=== PATIENT | female | born 1995 | race Caucasian/White ===

== ENCOUNTER 2016-06-26 13:46 | Emergency (ER) | payer BC ==
[~2016-06-26] VITALS: Ht 162.6 cm; Wt 43.6 kg
[~2016-06-26 13:46] MED LIST: ESCI10TA17 PO
[2016-06-26 13:50] VITALS: BP 130/86; TEMP 36.6; Ht 162.6 cm; Wt 43.6 kg
[2016-06-26] MEDS ORDERED: IBUPROFEN 600 MG TAB PO STA (14:01)
[2016-06-26] MEDS ORDERED: CITA20TA9 PO (14:04)
--- NOTE | 2016-06-26 14:29 | DIAGNOSTIC IMAGING REPORT ---
RIGHT WRIST MIN 3 VIEWS ROUTINE CLINICAL HISTORY: Right wrist pain following injury. COMPARISON: None FINDINGS: Alignment of the right wrist is anatomic. There is no acute fracture. IMPRESSION: No acute fracture or dislocation of the right wrist. Electronically signed by: Jake Lomas M.D. 06/26/2016 2:27 PM Dictated Date/Time: 06/26/2016 2:27 PM
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
[2016-06-26 15:21] VITALS: PULSE 89; O2SAT 95
== END 2016-06-26 15:00 | disposition home or self-care (01) ==
LOC: C.EDB 13:49 → C.EDD 15:00
DX: S63.501A Unspecified sprain of right wrist, initial encounter (principal); Y09 Assault by unspecified means; F31.9 Bipolar disorder, unspecified; F17.200 Nicotine dependence, unspecified, uncomplicated; Z87.440 Personal history of urinary (tract) infections; Z79.899 Other long term (current) drug therapy; Z83.79 Family history of other diseases of the digestive system

== ENCOUNTER 2017-01-10 14:23 | Emergency (ER) | payer BC ==
[~2017-01-10] VITALS: Ht 162.6 cm; Wt 44.5 kg
[~2017-01-10 14:23] MED LIST changes: +CITA20TA9 PO; -ESCI10TA17 PO
[2017-01-10 14:34] VITALS: TEMP 37.3; Ht 162.6 cm; Wt 44.5 kg
--- NOTE | 2017-01-10 14:53 | EMERGENCY ROOM VISIT NOTE ---
History First contact with patient: 14:37 Chief Complaint: CARDIAC ASSESSMENT Stated Complaint: CHEST PAIN,PAINFUL BREATHING Nursing Triage Summary: triage note: pt reports she is 6 weeks preg. pt reports for the past 3 days she has had chest pain and pain with breathing. pt seen at [facility] and sent to ed for further eval. History of Present Illness The patient is a 21 year old female who presents to the Emergency Room with complaints of bilateral chest pain that is worse with inspiration and that has been intermittent over the last 3 days. The patient also has some associated difficulty breathing. She denies any infectious symptoms such as productive cough or fever. The patient reports that she is 6 weeks . She is . She does admit to smoking up until 2 weeks ago. She quit when she found out that she was . She denies any vaginal bleeding or lower abdominal cramping. She denies any leg pain, recent long travel or history of blood clots. He does intermittently feel dizzy, however this is been going on for several weeks. She denies heart palpitations. Review of Systems 10 system review performed and negative unless noted in HPI or below Past Medical/Surgical History Medical Problems: (1) Bipolar disorder (2) Dehydration (3) Deliver-Single Liveborn (4) Nausea vomiting and diarrhea (5) Oth Curr Cond-Antepartum (6) premature rupture of membranes (7) Single (8) Supervis Oth Normal Preg (9) Urinary tract infection Surgical Problems: (1) H/O dilation and curettage Family History Ulcerative colitis Social History Smoking Status: Former Smoker Alcohol Use: occasionally Drug Use: none Marital Status: single Housing Status: lives with family Occupation Status: employed Current/Historical Medications Scheduled Citalopram Hydrobromide (Celexa), 20 MG PO QAM Hydroxyzine Pamoate (Vistaril), 25 MG PO HS Multivit/Min/Iron/Fol Ac/Pren ( Vitamin), 2 TAB PO DAILY Physical Exam Vital Signs Date Time Temp Pulse Resp B/P (MAP) Pulse Ox O2 Delivery O2 Flow Rate FiO2 01/10/17 17:15 96 16 109/61 100 01/10/17 16:18 80 16 108/50 99 01/10/17 14:34 37.3 118 20 103/68 99 Room Air Physical Exam VITALS: Vitals are noted on the nurse's note and reviewed by myself. Vital signs stable. GENERAL: 21-year-old female, in no acute distress, nondiaphoretic, well- developed well-nourished. SKIN: The skin was without rashes, erythema, edema, or bruising. HEAD: Normocephalic atraumatic. EARS: External auditory canals clear, tympanic membranes pearly flores without erythema or effusion bilaterally. EYES: Conjunctivae without injection, sclerae without icterus. Extraocular movements intact. MOUTH: Mucous membranes moist. Tonsils are not enlarged. Pharynx without erythema or exudate. Uvula midline. Airway patent. Tongue does not deviate. NECK: Supple without nuchal rigidity. No lymphadenopathy. Cervical spine is nontender. No JVD. HEART: Tachycardic, regular rhythm without murmurs gallops or rubs. LUNGS: Clear to auscultation bilaterally without wheezes, rales or rhonchi. No accessory muscle use. No tenderness over the thorax. ABDOMEN: Positive bowel sounds x 4.Soft, nontender, without organomegaly. No guarding or rebound tenderness. MUSCULOSKELETAL: No muscle atrophy, erythema, or edema noted. Strength 5/5 throughout. NEURO: Patient was alert and oriented to person place and time. Normal sensation to touch. No focal neurological deficits. Medical Decision & Procedures ER Provider Diagnostic Interpretation: Chest x-ray IMPRESSION: 1. Minor blunting of the right lateral costophrenic angle 2. No evidence of focal pulmonary consolidation Electronically signed by: Dario Ochoa M.D. 01/10/2017 3:08 PM Dictated Date/Time: 01/10/2017 3:07 PM The status of this report is Signed. Draft = Not yet reviewed or approved by Radiologist. Signed = Reviewed and approved by Radiologist. Laboratory Results 01/10/17 15:06 Red Blood Count 4.25, Mean Corpuscular Volume 88.9, Mean Corpuscular Hemoglobin 31.5, Mean Corpuscular Hemoglobin Concent 35.4, Mean Platelet Volume 8.2, Neutrophils (%) (Auto) 72.0, Lymphocytes (%) (Auto) 13.5, Monocytes (%) (Auto) 12.5, Eosinophils (%) (Auto) 1.4, Basophils (%) (Auto) 0.2, Neutrophils # (Auto ) 7.61, Lymphocytes # (Auto) 1.43, Monocytes # (Auto) 1.32, Eosinophils # (Auto ) 0.15, Basophils # (Auto) 0.02 01/10/17 15:06 Test 01/10/17 15:06 White Blood Count 10.57 K/uL (4.8-10.8) Red Blood Count 4.25 M/uL (4.2-5.4) Hemoglobin 13.4 g/dL (12.0-16.0) Hematocrit 37.8 % (37-47) Mean Corpuscular Volume 88.9 fL (80-100) Mean Corpuscular Hemoglobin 31.5 pg (25-34) Mean Corpuscular Hemoglobin Concent 35.4 g/dl (32-36) Platelet Count 307 K/uL (130-400) Mean Platelet Volume 8.2 fL (7.4-10.4) Neutrophils (%) (Auto) 72.0 % Lymphocytes (%) (Auto) 13.5 % Monocytes (%) (Auto) 12.5 % Eosinophils (%) (Auto) 1.4 % Basophils (%) (Auto) 0.2 % Neutrophils # (Auto) 7.61 K/uL (1.4-6.5) Lymphocytes # (Auto) 1.43 K/uL (1.2-3.4) Monocytes # (Auto) 1.32 K/uL (0.11-0.59) Eosinophils # (Auto) 0.15 K/uL (0-0.5) Basophils # (Auto) 0.02 K/uL (0-0.2) RDW Standard Deviation 40.1 fL (36.4-46.3) RDW Coefficient of Variation 12.5 % (11.5-14.5) Immature Granulocyte % (Auto) 0.4 % Immature Granulocyte # (Auto) 0.04 K/uL (0.00-0.02) D-Dimer 200 ug/L FEU (0-500) Anion Gap 7.0 mmol/L (3-11) Est Creatinine Clear Calc Drug Dose 99.1 ml/min Estimated GFR () 147.3 Estimated GFR (Non- 127.1 BUN/Creatinine Ratio 18.4 (10-20) Calcium Level 8.4 mg/dl (8.5-10.1) Total Bilirubin 0.9 mg/dl (0.2-1) Aspartate Amino Transf (AST/SGOT) 9 U/L (15-37) Alanine Aminotransferase (ALT/SGPT) 15 U/L (12-78) Alkaline Phosphatase 61 U/L (45-117) Troponin I < 0.015 ng/ml (0-0.045) Total Protein 7.4 gm/dl (6.4-8.2) Albumin 3.8 gm/dl (3.4-5.0) Globulin 3.6 gm/dl (2.5-4.0) Albumin/Globulin Ratio 1.1 (0.9-2) Human Chorionic Gonadotropin, Quant 68744 mIU/mL ECG Indication: chest pain Rate (beats per minute): 85 Rhythm: normal sinus Comparison ECG Date: no prior available ED Course Patient was seen and examined Vital signs including blood pressure were reviewed medications list was verified with patient Labs were obtained, and a saline lock was established An EKG was performed. She was put on a monitor. Upon reevaluation, the patient was resting comfortably. We discussed the results of her workup. She voiced understanding, and was comfortable being discharged home. The case was also discussed with my supervising physician I reviewed discharge instructions the patient. They voiced understanding and had no further questions. Medical Decision Differential diagnosis: Pulmonary embolus, musculoskeletal pain, costochondritis Acute myocardial infarction, cardiac arrhythmia, anemia, thyroid abnormality, pneumothorax, pneumonia, bronchitis, pericarditis, electrolyte imbalance This patient is a 21-year-old female that presents to the emergency department with complaints of pleuritic chest pain. Also some slight shortness of breath. This however seem to be associated more with pain during deep breathing. She is also 6 weeks . Upon initial evaluation, the patient was tachycardic. She does have a history of smoking, however she does say that she quit smoking a few weeks back. A cardiac workup was performed. Her EKG shows normal sinus rhythm with no signs of ischemia or infarction. No signs of a cardiac arrhythmia on the monitor. Her troponin is negative. Other labs were within normal limits. A d-dimer was also performed and within normal limits. Had a low suspicion at that point of pulmonary embolus. This is likely musculoskeletal pain. The patient was advised that she should take Tylenol only for pain, not ibuprofen. She was also advised that she should follow-up with her primary care physician in addition to her mechanic chief within 48 hours. She agrees to return to the emergency department with any new or worsening symptoms This chart was completed in part utilizing [employer] Speech Voice Recognition software. Attempts were made to minimize the grammatical errors, random word insertions, pronoun errors and incomplete sentences. Any formal questions or concerns about the content, text or information contained within the body of this dictation should be directly addressed to the provider for clarification. Impression Primary Impression: Chest pain Departure Information Dispostion Home / Self-Care Condition GOOD Referrals No Doctor, Assigned (PCP) Patient Instructions My [facility] Additional Instructions You were evaluated in the emergency department for chest pain. This is possibly due to musculoskeletal pain. You may have Tylenol 500 mg every 6 hours as needed for pain. Please follow up closely with your primary care physician. Call on Thursday for a follow-up appointment. Please also notify your hand candy cutter that you were in the emergency department. Please return to the emergency department with any new or worsening symptoms such as worsening pain, difficulty breathing, vaginal bleeding or severe abdominal cramping.
--- NOTE | 2017-01-10 15:09 | DIAGNOSTIC IMAGING REPORT ---
CHEST ONE VIEW PORTABLE CLINICAL HISTORY: Atypical chest pain shortness of breath. . COMPARISON STUDY: 07/05/2015 FINDINGS: The cardiac and mediastinal contours are normal. There is no evidence of focal pulmonary consolidation. There is no evidence of failure. There is minor blunting of the right lateral costophrenic angle..[ A rounded opacity at the right lung base likely representing nipple shadow. There is a mild thoracic levoscoliosis. IMPRESSION: 1. Minor blunting of the right lateral costophrenic angle 2. No evidence of focal pulmonary consolidation Electronically signed by: Dario Ochoa M.D. 01/10/2017 3:08 PM Dictated Date/Time: 01/10/2017 3:07 PM
[2017-01-10 15:16] LABS: BASO % 0.2 %; BASO ABS # 0.02 K/uL (0-0.2); COMPLETE YES; EOS % 1.4 %; HEMATOCRIT 37.8 % (37-47); IG% 0.4 %; LYMPH % 13.5 %; LYMPH ABS # 1.43 K/uL (1.2-3.4); MEAN CELL VOLUME 88.9 fL (80-100); MEAN CORPUSCULAR HEMOGLOBIN 31.5 pg (25-34); MEAN CORPUSCULAR HGB CONC 35.4 g/dl (32-36); MEAN PLATELET VOLUME 8.2 fL (7.4-10.4); MONO % 12.5 %; PLATELET COUNT 307 K/uL (130-400); RED BLOOD COUNT 4.25 M/uL (4.2-5.4); WHITE BLOOD COUNT 10.57 K/uL (4.8-10.8)
[2017-01-10 15:33] LABS: ALT/SGPT 15 U/L (12-78); AST/SGOT 9 U/L (15-37); BLOOD UREA NITROGEN 11 mg/dl (7-18); BUN/CREATININE RATIO 18.4 (10-20); CALCIUM 8.4 mg/dl (8.5-10.1); CARBON DIOXIDE 28 mmol/L (21-32); CHLORIDE 102 mmol/L (98-107); CREATININE 0.62 mg/dl (0.60-1.20); GLUCOSE 132 mg/dl (70-99); POTASSIUM 3.5 mmol/L (3.5-5.1); SODIUM 137 mmol/L (136-145)
[2017-01-10] MEDS ORDERED: HYDR25CA PO (15:36)
[2017-01-10] MEDS ORDERED: PRENTAB26 PO (15:37)
[2017-01-10 15:38] LABS: ALB/GLOB RATIO 1.1 (0.9-2); ALKALINE PHOSPHATASE 61 U/L (45-117)
[2017-01-10 17:15] VITALS: BP 109/61; PULSE 96; O2SAT 100
== END 2017-01-10 17:16 | disposition home or self-care (01) ==
LOC: C.EDB 14:25 → C.EDA 17:16
DX: O26.891 Other specified pregnancy related conditions, first trimester (principal); R07.9 Chest pain, unspecified; Z3A.01 Less than 8 weeks gestation of pregnancy; O99.341 Other mental disorders complicating pregnancy, first trimester; F31.9 Bipolar disorder, unspecified; Z87.440 Personal history of urinary (tract) infections; Z87.891 Personal history of nicotine dependence; Z83.79 Family history of other diseases of the digestive system; Z79.899 Other long term (current) drug therapy

== ENCOUNTER 2017-02-13 14:30 | Emergency (ER) | payer BC ==
[~2017-02-13] VITALS: Ht 162.6 cm; Wt 46.7 kg
[~2017-02-13 14:30] MED LIST changes: +HYDR25CA PO
[2017-02-13 14:34] VITALS: TEMP 37; Ht 162.6 cm; Wt 46.7 kg
--- NOTE | 2017-02-13 15:01 | DIAGNOSTIC IMAGING REPORT ---
R HAND MIN 3 VIEWS ROUTINE HISTORY: 21 years-old Female R ring finger pain acute right fourth finger pain COMPARISON: Right wrist radiographs 06/26/2016 TECHNIQUE: 3 views of the right hand FINDINGS: There is an acute appearing intra-articular avulsion fracture involving the dorsal base of the fourth distal phalanx with mild associated soft tissue swelling. No additional acute fracture or dislocation. IMPRESSION: Acute intra-articular avulsion fracture involves the dorsal base of the fourth distal phalanx. The above report was generated using voice recognition software. It may contain grammatical, syntax or spelling errors. Electronically signed by: Glynn Kim M.D. 02/13/2017 3:00 PM Dictated Date/Time: 02/13/2017 2:58 PM
[2017-02-13] MEDS ORDERED: [UNRECOGNIZED DRUG - OTHER] PO (15:06)
[2017-02-13 15:33] VITALS: BP 113/56; PULSE 87; O2SAT 100
[2017-02-13] MEDS ORDERED: PRENTAB26 PO (15:37)
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
== END 2017-02-13 15:35 | disposition home or self-care (01) ==
LOC: C.EDB 14:31 → C.EDD 15:35
DX: S62.634A Displaced fracture of distal phalanx of right ring finger, initial encounter for closed fracture (principal); Y04.8XXA Assault by other bodily force, initial encounter; Y07.03 Male partner, perpetrator of maltreatment and neglect

== ENCOUNTER 2017-02-26 17:54 | Emergency (ER) | payer BC ==
[~2017-02-26] VITALS: Ht 162.6 cm; Wt 46.8 kg
[~2017-02-26 17:54] MED LIST changes: -HYDR25CA PO; +PRENTAB26 PO; +[UNRECOGNIZED DRUG - OTHER] PO
[2017-02-26 20:03] VITALS: O2SAT 99; Ht 162.6 cm; Wt 46.8 kg
--- NOTE | 2017-02-26 20:04 | EMERGENCY ROOM VISIT NOTE ---
History Report prepared by Evangelina: Abdi Toney Under the Supervision of: Dr. Juan Elliott M.D. First contact with patient: 19:53 Chief Complaint: ED VAG BLEEDING Stated Complaint: 12 WKS , BLEEDING, CRAMPING History of Present Illness The patient is a 21 year old female who presents to the Emergency Room with complaints of constant vaginal bleeding that began this morning. Patient is 12 weeks . She describes the pain as feeling like a normal period and denies going through numerous pads. She states that she began seeing spotting this morning and was referred to the ED after talking to her OB doctor. She states her OB doctor is from [facility]. Patient adds that she has been under a lot of stress lately. She has associated symptoms of cramping. Patient denies having any pain. She states this is her 3rd and denies any previous miscarriages. Pertinent medical history includes a broken finger. She states her last menstrual period was 14 weeks ago. Source of History: patient Onset: This morning Position: pelvis Timing: constant Associated Symptoms: No abdominal pain, No back pain Note: Patient has cramping. Review of Systems See HPI for pertinent positives & negatives. A total of 10 systems reviewed and were otherwise negative. Past Medical & Surgical Medical Problems: (1) Bipolar disorder (2) Dehydration (3) Deliver-Single Liveborn (4) Nausea vomiting and diarrhea (5) Oth Curr Cond-Antepartum (6) premature rupture of membranes (7) Single (8) Supervis Oth Normal Preg (9) Urinary tract infection Surgical Problems: (1) H/O dilation and curettage Family History Ulcerative colitis Social History Smoking Status: Never Smoker Alcohol Use: occasionally Drug Use: none Marital Status: single Housing Status: lives with family Occupation Status: employed Current/Historical Medications Scheduled Citalopram Hydrobromide (Celexa), 30 MG PO QAM Multivit/Min/Iron/Fol Ac/Pren ( Vitamin), 2 TABS PO QAM [Dielegis], 2 TABS PO QAM Allergies Coded Allergies: No Known Allergies (Unverified , 02/26/17) Physical Exam Vital Signs Date Time Temp Pulse Resp B/P (MAP) Pulse Ox O2 Delivery O2 Flow Rate FiO2 02/26/17 22:59 37.1 74 18 117/67 98 02/26/17 21:53 74 18 117/67 98 Room Air 02/26/17 20:03 99 Room Air 02/26/17 18:01 37.1 91 16 110/73 99 Room Air Physical Exam GENERAL: Patient is a healthy-appearing well-nourished female HEAD: Normocephalic atraumatic EYES: Ocular movements intact pupils equal and react to light OROPHARYNX mucous membranes are moist no exudates present no erythema or edema present NECK: Supple no nuchal rigidity CHEST: Good equal expansion LUNGS: Clear and equal to auscultation CARDIAC: Normal S1 and S2 ABDOMEN: Soft nontender no guarding BACK: No CVA tenderness EXTREMITIES: No pain upon palpation normal muscle strength in all groups no clubbing cyanosis or edema NEURO: Patient is following commands is answering questions appropriately. Alert and oriented x3 Cranial Nerves 2-12 grossly intact Medical Decision & Procedures ER Provider Diagnostic Interpretation: Radiology results as stated below per my review and radiologist interpretation: <14 WKS SINGLE CLINICAL HISTORY: Abnormal vaginal bleeding COMPARISON STUDY: 10/04/2014 FINDINGS: There is a single intrauterine gestation. The crown-rump length is 2.9 cm corresponding to an estimated postmenstrual age of 9 weeks and 5 days. No cardiac activity was delineated. The findings are indicative of demise. There is edematous halo surrounding the embryo. The maternal right ovary measured 38 x 23 x 21 mm. The maternal left ovary was nonvisualized. IMPRESSION: 1. Edematous intrauterine embryo with a postmenstrual age of 9 weeks and 5 days. No cardiac activity was delineated. The findings are indicative of demise. Electronically signed by: Dario Ochoa M.D. 02/26/2017 10:03 PM Laboratory Results 02/26/17 20:31 Red Blood Count 4.51, Mean Corpuscular Volume 87.8, Mean Corpuscular Hemoglobin 31.5, Mean Corpuscular Hemoglobin Concent 35.9, Mean Platelet Volume 8.2, Neutrophils (%) (Auto) 40.3, Lymphocytes (%) (Auto) 44.9, Monocytes (%) (Auto) 11.9, Eosinophils (%) (Auto) 1.8, Basophils (%) (Auto) 0.8, Neutrophils # (Auto ) 2.44, Lymphocytes # (Auto) 2.72, Monocytes # (Auto) 0.72, Eosinophils # (Auto ) 0.11, Basophils # (Auto) 0.05 02/26/17 20:31 Test 02/26/17 20:31 02/26/17 20:58 White Blood Count 6.06 K/uL (4.8-10.8) Red Blood Count 4.51 M/uL (4.2-5.4) Hemoglobin 14.2 g/dL (12.0-16.0) Hematocrit 39.6 % (37-47) Mean Corpuscular Volume 87.8 fL (80-100) Mean Corpuscular Hemoglobin 31.5 pg (25-34) Mean Corpuscular Hemoglobin Concent 35.9 g/dl (32-36) Platelet Count 246 K/uL (130-400) Mean Platelet Volume 8.2 fL (7.4-10.4) Neutrophils (%) (Auto) 40.3 % Lymphocytes (%) (Auto) 44.9 % Monocytes (%) (Auto) 11.9 % Eosinophils (%) (Auto) 1.8 % Basophils (%) (Auto) 0.8 % Neutrophils # (Auto) 2.44 K/uL (1.4-6.5) Lymphocytes # (Auto) 2.72 K/uL (1.2-3.4) Monocytes # (Auto) 0.72 K/uL (0.11-0.59) Eosinophils # (Auto) 0.11 K/uL (0-0.5) Basophils # (Auto) 0.05 K/uL (0-0.2) RDW Standard Deviation 41.1 fL (36.4-46.3) RDW Coefficient of Variation 12.7 % (11.5-14.5) Immature Granulocyte % (Auto) 0.3 % Immature Granulocyte # (Auto) 0.02 K/uL (0.00-0.02) Prothrombin Time 11.0 SECONDS (9.0-12.0) Prothromb Time International Ratio 1.0 (0.9-1.1) Activated Partial Thromboplast Time 31.1 SECONDS (21.0-31.0) Partial Thromboplastin Ratio 1.2 Anion Gap 5.0 mmol/L (3-11) Est Creatinine Clear Calc Drug Dose 115.4 ml/min Estimated GFR () > 150.0 Estimated GFR (Non- 131.4 BUN/Creatinine Ratio 7.3 (10-20) Calcium Level 8.6 mg/dl (8.5-10.1) Total Bilirubin 0.5 mg/dl (0.2-1) Aspartate Amino Transf (AST/SGOT) 14 U/L (15-37) Alanine Aminotransferase (ALT/SGPT) 21 U/L (12-78) Alkaline Phosphatase 54 U/L (45-117) Total Protein 7.4 gm/dl (6.4-8.2) Albumin 3.5 gm/dl (3.4-5.0) Globulin 3.9 gm/dl (2.5-4.0) Albumin/Globulin Ratio 0.9 (0.9-2) Human Chorionic Gonadotropin, Quant 1832 mIU/mL Urine Color DK YELLOW Urine Appearance CLOUDY (CLEAR) Urine pH 7.5 (4.5-7.5) Urine Specific [place] 1.026 (1.000-1.030) Urine Protein NEG (NEG) Urine Glucose (UA) NEG (NEG) Urine Ketones TRACE (NEG) Urine Occult Blood 2+ (NEG) Urine Nitrite NEG (NEG) Urine Bilirubin NEG (NEG) Urine Urobilinogen NEG (NEG) Urine Leukocyte Esterase SMALL (NEG) Urine WBC (Auto) 5-10 /hpf (0-5) Urine RBC (Auto) 0-4 /hpf (0-4) Urine Hyaline Casts (Auto) 10-30 /lpf (0-5) Urine Epithelial Cells (Auto) >30 /lpf (0-5) Urine Bacteria (Auto) NEG (NEG) Urine Crystals CALCIUM OXALATE (NONE Urine Test POS (NEG) Labs reviewed by ED physician. ED Course 1999: Past medical records reviewed. The patient was evaluated in room B2. A complete history and physical examination was performed. Medical Decision This is a 21-year-old female who presents emergency department complaining of vaginal spotting. The patient believes she is 12 weeks . She did have a can for [place] ultrasound at 8 weeks. Based on the patient's complaint she was sent for a pelvic ultrasound. Her beta hCG hormone I will note is exceedingly low and her ultrasound is concerning for demise. For this reason Dr. Street was kind enough to see the patient here in the emergency department. I do believe that the patient is well enough to be discharged home. Patient will follow-up with [facility]. Medication Reconcilliation Current Medication List: was personally reviewed by me Blood Pressure Screening Patient's blood pressure: Normal blood pressure Blood pressure disposition: Did not require urgent referral Consults Time Called: [phone] Consulting Physician: Dr. Street - Hospitalist Returned Call: [phone] I discussed the patient's case with Dr. Street, he has agreed to evaluate the patient for further management and care. Impression Primary Impression: Vaginal bleeding Scribe Attestation The scribe's documentation has been prepared under my direction and personally reviewed by me in its entirety. I confirm that the note above accurately reflects all work, treatment, procedures, and medical decision making performed by me. Departure Information Dispostion Home / Self-Care Referrals No Doctor, Assigned (PCP) Forms HOME CARE DOCUMENTATION FORM, IMPORTANT VISIT INFORMATION, WORK / SCHOOL INSTRUCTIONS Patient Instructions ED Miscarriage Incom, My [facility] Additional Instructions Follow up with Dr Street's office You have been examined and treated today on an emergency basis only. This is not a substitute for, or an effort to provide, complete comprehensive medical care. It is impossible to recognize and treat all injuries or illnesses in a single emergency department visit. It is therefore important that you follow up closely with your PCP. Call as soon as possible for an appointment. Thank you for your time and consideration. I look forward to speaking with you again soon. Please don't hesitate to call us if you have any questions.
[2017-02-26 20:45] LABS: BASO % 0.8 %; BASO ABS # 0.05 K/uL (0-0.2); EOS % 1.8 %; EOS ABS # 0.11 K/uL (0-0.5); HEMATOCRIT 39.6 % (37-47); HEMOGLOBIN 14.2 g/dL (12.0-16.0); IG# 0.02 K/uL (0.00-0.02); LYMPH % 44.9 %; LYMPH ABS # 2.72 K/uL (1.2-3.4); MEAN CELL VOLUME 87.8 fL (80-100); MEAN CORPUSCULAR HEMOGLOBIN 31.5 pg (25-34); MEAN CORPUSCULAR HGB CONC 35.9 g/dl (32-36); MEAN PLATELET VOLUME 8.2 fL (7.4-10.4); MONO % 11.9 %; MONO ABS # 0.72 K/uL (0.11-0.59); NEUT % 40.3 %; NEUT ABS # 2.44 K/uL (1.4-6.5); PLATELET COUNT 246 K/uL (130-400); RED CELL DISTRIBUTION WIDTH CV 12.7 % (11.5-14.5); RED CELL DISTRIBUTION WIDTH SD 41.1 fL (36.4-46.3); WHITE BLOOD COUNT 6.06 K/uL (4.8-10.8)
[2017-02-26 21:07] LABS: ALBUMIN 3.5 gm/dl (3.4-5.0); ALT/SGPT 21 U/L (12-78); AST/SGOT 14 U/L (15-37); BLOOD UREA NITROGEN 4 mg/dl (7-18); CALCIUM 8.6 mg/dl (8.5-10.1); CARBON DIOXIDE 29 mmol/L (21-32); CREATININE 0.56 mg/dl (0.60-1.20); GLUCOSE 92 mg/dl (70-99); POTASSIUM 3.3 mmol/L (3.5-5.1); SODIUM 138 mmol/L (136-145)
[2017-02-26 21:09] LABS: ALKALINE PHOSPHATASE 54 U/L (45-117); TOTAL PROTEIN 7.4 gm/dl (6.4-8.2)
[2017-02-26 21:13] LABS: PTT PATIENT 31.1 SECONDS (21.0-31.0)
--- NOTE | 2017-02-26 22:04 | DIAGNOSTIC IMAGING REPORT ---
<14 WKS SINGLE CLINICAL HISTORY: Abnormal vaginal bleeding COMPARISON STUDY: 10/04/2014 FINDINGS: There is a single intrauterine gestation. The crown-rump length is 2.9 cm corresponding to an estimated postmenstrual age of 9 weeks and 5 days. No cardiac activity was delineated. The findings are indicative of demise. There is edematous halo surrounding the embryo. The maternal right ovary measured 38 x 23 x 21 mm. The maternal left ovary was nonvisualized. IMPRESSION: 1. Edematous intrauterine embryo with a postmenstrual age of 9 weeks and 5 days. No cardiac activity was delineated. The findings are indicative of demise. Electronically signed by: Dario Ochoa M.D. 02/26/2017 10:03 PM Dictated Date/Time: 02/26/2017 10:00 PM
[2017-02-26 22:59] VITALS: BP 117/67; PULSE 74; TEMP 37.1; O2SAT 98
--- NOTE | 2017-02-26 23:25 | CONSULTATION REPORT ---
DATE OF CONSULTATION: 02/26/2017 REQUESTING PHYSICIAN: This is a consult placed by Dr. Elliott from the Emergency Room. HISTORY OF PRESENT ILLNESS: This is a 21-year-old G4, P2, patient is 12 weeks by LMP who had vaginal bleeding today. She called the office and was asked to come to the Emergency Room for evaluation. On arrival to the Emergency Room, she had no shortness of breath, no chills, no fever. Her bleeding had improved. Ultrasound was done and showed a demise of 9 weeks and 4 days. REGIONAL AGRONOMIST consult was placed. When I arrived to the room, the patient is alert, awake, of course sad to hear of the demise. She however was stable. CBC was evaluated, hemoglobin is over 14. Bleeding has improved. PAST MEDICAL HISTORY: History of bipolar disorder, history of UTIs. PAST SURGICAL HISTORY: History of D&C. SOCIAL HISTORY: The patient denies tobacco, drug or alcohol use. ALLERGIES: No known drug allergies. PHYSICAL EXAMINATION: GENERAL: Well-developed, well-nourished white female in no acute distress. VITAL SIGNS: Blood pressure is 117/67, pulse is 74, temperature is 37.1. HEART: S1, S2, regular rhythm and rate. LUNGS: Clear to auscultation bilaterally. ABDOMEN: Nontender, nondistended, positive bowel sounds. EXTREMITIES: No cyanosis, clubbing or edema. ASSESSMENT AND PLAN: This is a 21-year-old G4, P2 at 12 weeks by last menstrual period, demise at 9 weeks plus. Diagnosis at this point is missed . Discussed findings and options with the patient including expectant management, medical treatment as well as surgery. The patient will call the office tomorrow and schedule an appointment for further discussion at which time she will decide which treatment option to consider.
== END 2017-02-26 23:00 | disposition home or self-care (01) ==
LOC: C.EDB 17:57
DX: O46.92 Antepartum hemorrhage, unspecified, second trimester (principal); F31.9 Bipolar disorder, unspecified; Z87.440 Personal history of urinary (tract) infections; Z79.899 Other long term (current) drug therapy; Z87.19 Personal history of other diseases of the digestive system

== ENCOUNTER 2017-03-06 05:24 | Day surgery (SDC) | payer BC ==
[2017-03-05 09:47] VITALS: BMI 18.0
[~2017-03-06] VITALS: Ht 162.6 cm; Wt 47.7 kg
[~2017-03-06 05:24] MED LIST changes: +HYDR25CA PO; -PRENTAB26 PO; -[UNRECOGNIZED DRUG - OTHER] PO
[2017-03-06 05:50] VITALS: BP 93/52; PULSE 76; TEMP 36.7; O2SAT 99; Ht 162.6 cm; Wt 47.7 kg
[2017-03-06] MEDS ORDERED: LACTATED RINGER'S 1000ML 1,000 ML IV SCH (06:00)
[2017-03-06] MEDS ORDERED: MISOPROSTOL 200 MCG TAB ONE (06:29)
[2017-03-06] MEDS ORDERED: METHYLERGONOVINE MALEATE 0.2 MG/ML AMP ONE (06:29)
[2017-03-06] MEDS ORDERED: MIDAZOLAM HCL 1 MG/ML 2ML VIAL ONE (06:48)
[2017-03-06] MEDS ORDERED: FENTANYL CITRATE INJ 50 MCG/1 ML 2 ML VIAL ONE (06:48)
[2017-03-06] MEDS ORDERED: PROPOFOL IV EMULSION 10 MG/ML 20 ML VIAL IV ONE (06:51)
[2017-03-06] MEDS ORDERED: LIDOCAINE HCL 2% 2 ML VIAL (20MG/ML) ONE (06:51)
[2017-03-06] MEDS ORDERED: ONDANSETRON INJ 2 MG/ML 2 ML VIAL ONE (06:51)
[2017-03-06] MEDS ORDERED: DEXAMETHASONE SOD INJ 4 MG/ML VIAL ONE (06:51)
[2017-03-06] MEDS ORDERED: FLUMAZENIL 0.1 MG/1 ML 10 ML VIAL IV PRN (07:00)
[2017-03-06] MEDS ORDERED: NALOXONE HCL 0.4 MG/1 ML VIAL/CARP IV PRN (07:00)
[2017-03-06] MEDS ORDERED: MEPERIDINE HCL 25 MG/ML CARP IV PRN (07:00)
[2017-03-06] MEDS ORDERED: FENTANYL CITRATE INJ 50 MCG/1 ML 2 ML VIAL IV PRN (07:00)
[2017-03-06] MEDS ORDERED: HYDROmorphone INJ 2 MG/ML SYR/VIAL IV PRN (07:00)
[2017-03-06] MEDS ORDERED: EpHEDrine SULFATE INJ 50 MG/ML AMP IV PRN (07:00)
[2017-03-06] MEDS ORDERED: LABETALOL HCL IV 5 MG/ML 20ML IV PRN (07:00)
[2017-03-06] MEDS ORDERED: PHENYLEPHRINE 100MCG/ML 5ML SYR IV PRN (07:00)
[2017-03-06] MEDS ORDERED: ONDANSETRON INJ 2 MG/ML 2 ML VIAL IV PRN (07:00)
[2017-03-06] MEDS ORDERED: ATROPINE SULFATE 0.1 MG/ML 5ML SYR IV PRN (07:00)
--- NOTE | 2017-03-06 07:00 | History & Physical Bridge Note ---
H&P Re-Evaluation Bridge Note: I have examined the patient, reviewed the History & Physical and in the interval since the performance of the History & Physical I have noted the following changes of clinical significance: No changes noted
[2017-03-06] MEDS ORDERED: MISOPROSTOL 200 MCG TAB PR ONE (07:15)
--- NOTE | 2017-03-06 07:48 | [facility] Operative Report ---
Operative Report Operative Date Mar 06, 2017. Pre-Operative Diagnosis Missed Post-Operative Diagnosis Missed Procedure(s) Performed Dilation and Evacuation of Uterus Surgeon Dr Street Fur Cleaner Surgeon(s) None Estimated Blood Loss 50cc Findings moderate POC Fluids 700 Specimens A: Products of Conception Drains none Complication(s) None Disposition Recovery Room / PACU I attest to the content of the Intraoperative Record and any orders documented therein. Any exceptions are noted below.
[2017-03-06] MEDS ORDERED: SODIUM CHLORIDE 0.9% 1000ML 1,000 ML IV SCH (07:52)
[2017-03-06] MEDS ORDERED: MTR600X PO (07:56)
[2017-03-06] MEDS ORDERED: METH0.2T39 PO (07:56)
--- NOTE | 2017-03-06 07:59 | Discharge Instructions ---
Discharge Instructions Date of Service Mar 06, 2017. Admission Reason for Admission: Missed @ 9 Weeks Discharge Discharge Diagnosis / Problem: postop Discharge Goals Goal(s): Routine recovery after surgery Activity Recommendations Activity Limitations: resume your previous activity ACTIVITY RECOMMENDATIONS: * Avoid tampons, douching, hot tubs, pools, and intercourse until bleeding has stopped. * May shower as usual. * No strenuous activity for 24-48 hours. After 24-48 hours, you may do anything you feel like doing (driving and sports are okay). SPECIAL CARE INSTRUCTIONS: Special Diet: * Mild nausea may occur in the immediate post-operative period. * Take clear liquids such as tea, cola or bouillon until all nausea has subsided; you may then resume your normal diet. Special Care: * Light bleeding and vaginal spotting can last from a few days to 3-4 weeks. Call your doctor if bleeding becomes heavier than the heaviest part of your period. * Check your temperature twice a day for one week. If it goes above 100.4 degrees Fahrenheit (38.0 Celsius), notify your doctor. * Call your doctor's office for an appointment for 6 weeks after your surgery. FOLLOW-UP VISIT: Call your doctor's office for an appointment for 6 weeks after your surgery. . Current Hospital Diet Patient's current hospital diet: Discharge Diet Recommended Diet: Regular Diet Procedures Procedures Performed: Dilation and Evacuation of Uterus Pending Studies Studies pending at discharge: no Medical Emergencies . Who to Call and When: Medical Emergencies: If at any time you feel your situation is an emergency, please call 911 immediately. . Non-Emergent Contact Non-Emergency issues call your: Specialist . . "Provider Documentation" section prepared by See Street. . VTE Core Measure Inpt VTE Proph given/why not?: Treatment not indicated
[2017-03-06] MEDS ORDERED: IBUPROFEN 600 MG TAB PO PRN (08:00)
[2017-03-06] MEDS ORDERED: METOCLOPRAMIDE HCL INJ 5 MG/ML 2 ML VIAL IV PRN (08:00)
[2017-03-06] MEDS ORDERED: OXYCODONE/ACETAMINOPHEN 5-325 TAB PO PRN (08:00)
--- NOTE | 2017-03-06 08:11 | Anesthesiology Progress Note ---
Anesthesia Post Op Note Date & Time Mar 06, 2017 at 08:11 Vital Signs Pain Intensity: 0 Vital Signs Past 12 Hours Date Time Temp Pulse Resp B/P (MAP) Pulse Ox O2 Delivery O2 Flow Rate FiO2 03/06/17 07:45 36.5 77 16 114/74 100 Oxymask 10 03/06/17 05:50 36.7 76 16 93/52 (66) 99 Room Air Notes Mental Status: alert / awake / arousable, participated in evaluation Pt Amnestic to Procedure: Yes Nausea / Vomiting: adequately controlled Pain: adequately controlled Airway Patency, RR, SpO2: stable & adequate BP & HR: stable & adequate Hydration State: stable & adequate Anesthetic Complications: no major complications apparent
--- NOTE | 2017-03-06 08:25 | OPERATIVE REPORT ---
DATE OF OPERATION: 03/06/2017 INDICATION FOR PROCEDURE: This is a 21-year-old with missed at 9+ weeks. PREOPERATIVE DIAGNOSES: Missed at 9 weeks. POSTOPERATIVE DIAGNOSIS: Same. PROCEDURE: Dilation and evacuation of uterus with suction. SURGEON: Dr. Street. STEM THRESHING MACHINE OPERATOR: None. ESTIMATED BLOOD LOSS: 50 mL. FINDINGS: Normal female escutcheon. No lesions on the vulva, vagina or cervix. Uterus is about 9 weeks' size. Moderate products of conception evacuated. FLUIDS: 700 mL. SPECIMEN: Products of conception. DRAINS: None. URINE OUTPUT: 100 mL clear urine at the beginning of the procedure. COMPLICATIONS: None. DISPOSITION: Stable to recovery room. PROCEDURE: The patient was taken to the operating room where she was prepped and draped in normal sterile fashion in dorsal lithotomy position after a timeout was called. Bladder was catheterized and 100 mL of clear urine was obtained. A weighted speculum was placed in the vagina. Bender retractor used to retract the anterior part of the vagina. Single tooth tenaculum was used to grab the anterior part of the cervix. Cervix was dilated to size 30. A size 10 curved curet was introduced into the uterine cavity with suction. Suction was performed. Products of conception were seen coming through the suction tube. Suction was removed and size 2 sharp curette introduced into the uterine cavity. Curettage was performed in all 4 quadrants until there was a gritty texture in all 4 quadrants. More suction was performed and no products were seen further coming down through the tube. There was good hemostasis. All instruments are removed from the uterus and vagina and accounted for x2. The patient is doing well in recovery. I attest to the content of the Intraoperative Record and any orders documented therein. Any exception s are noted below.
[2017-03-06 08:28] VITALS: BP 102/59; PULSE 68; TEMP 36.7; O2SAT 100
[2017-03-06] MEDS ORDERED: IBUPROFEN 600 MG TAB ONE (08:51)
[2017-03-06 08:58] VITALS: BP 100/56; PULSE 81; TEMP 36.7; O2SAT 99
== END 2017-03-06 09:20 | disposition home or self-care (01) ==
LOC: C.ACU 05:24
PROVIDERS: ATTEND Obstetrics & Gynecology
DX: O02.1 Missed abortion (principal); F32.9 Major depressive disorder, single episode, unspecified; M41.9 Scoliosis, unspecified; F17.210 Nicotine dependence, cigarettes, uncomplicated

== ENCOUNTER 2018-03-25 07:30 | Inpatient (IN) ==
[2018-03-25] MEDS ORDERED: OXYTOCIN 30 UNITS/500 ML BAG IV PRN ×2 (09:02→20:10)
[2018-03-25] MEDS ORDERED: miSOPROStol 50 MCG TAB PO ONE (09:02)
[2018-03-25] MEDS ORDERED: LACTATED RINGER'S 1,000 ML IV PRN ×2 (09:02→16:43)
[2018-03-25] MEDS ORDERED: LACTATED RINGER'S 1,000 ML IV SCH (09:15)
[2018-03-25 09:19] LABS: Hematocrit (blood only) 34.8 % (37-47); Hemoglobin 11.5 g/dL (12.0-16.0); Mean Corpuscular Volume 82.7 fL (80-100); Mean Platelet Volume 8.9 fL (7.4-10.4); Platelet Count 288 K/uL (130-400); RDW Coefficient of Variation 14.8 % (11.5-14.5); RDW Standard Deviation 44.9 fL (36.4-46.3); Red Blood Count 4.21 M/uL (4.2-5.4); White Blood Count 10.02 K/uL (4.8-10.8)
--- NOTE | 2018-03-25 10:08 | History and Physical Report ---
DATE OF ADMISSION: 03/25/2018 HISTORY OF PRESENT ILLNESS: Patient is a 22-year-old G4, P2, due date is 03/23/2018 making her 40 weeks and 1 day, here in labor and delivery for induction of labor for prolonged gestation. has been unremarkable. Patient was seen in the office yesterday and underwent an NST and JHOAN, NST was reactive, JHOAN was 18.0. PAST MEDICAL HISTORY: 1. History of depression. 2. History of scoliosis. PAST SURGICAL HISTORY: Patient had colonoscopy and EGD. ALLERGIES: No known drug allergies. SOCIAL HISTORY: Patient denies tobacco, drug, and alcohol use. FAMILY HISTORY: Noncontributory. OBSTETRIC/GYNECOLOGIC HISTORY: Patient has had 2 vaginal deliveries, 04/2015 and 02/2017, and infants weighed 8 pounds 1 ounce and 6 pounds 4 ounces respectively. PHYSICAL EXAMINATION: GENERAL: Well-developed and well-nourished white female, in no acute distress. HEART: S1 and S2, regular rhythm and rate. LUNGS: Clear to auscultation bilaterally. ABDOMEN: Gravid. heart rate category 1. PELVIC: Patient is 2-3 cm, 50% effaced, and -2. EXTREMITIES: No cyanosis, clubbing, or edema. ASSESSMENT AND PLAN: A 22-year-old G4, P2, at 40 weeks 1, here for induction of labor for prolonged gestation. Anticipate vaginal delivery.
--- NOTE | 2018-03-25 14:15 | Labor Progress Brief Note ---
Date of Service March 25, 2018 Pt doing well FHR; CAT1 Ctx 2-3mins VE; /-1 AROM-clear anticipate VD Physical Exam 2 Vital Signs (Past 24 Hours): Last Vital Signs Temp 36.5 C 03/25/18 11:51 Pulse 83 03/25/18 11:51 Resp 20 03/25/18 11:51 BP 115/65 03/25/18 11:51
[2018-03-25] MEDS ORDERED: fentaNYL citrate 100 MCG/2 ML VIAL ONE (15:30)
[2018-03-25] MEDS ORDERED: BUPIVACAINE 0.25% 30 ML VIAL ONE (15:30)
[2018-03-25] MEDS ORDERED: ePHEDrine sulfate 50 MG/ML AMP ONE (15:30)
[2018-03-25] MEDS ORDERED: fentaNYL 2MCG/ML ROPIV 1.25MG/ML 100 ML BAG EPI ONE (15:31)
[2018-03-25] MEDS ORDERED: BUTORPHANOL TARTRATE 1 MG/ML VIAL IV PRN (15:51)
--- NOTE | 2018-03-25 16:20 | Anesthesiology Consultation ---
Date of Service March 25, 2018 Assessment & Plan (1) Encounter for pre-operative examination: Chart Review Chart Review: Acceptable Risk for Labor Epidural Consults Requested none ASA ASA2 Proposed Anesthesia Anesthesia Type: Labor Epidural Risk / Benefits Reviewed With: PT / POA / Parent / Guardian, Accepts Plan and Informed Consent Obtained History Height/Weight Height: 5 ft 4 in Weight: 58.513 kg Allergies Allergy/AdvReac Type Severity Reaction Status Date / Time No Known Allergies Allergy Verified 03/25/18 07:51 Medications Home Medications Medication Instructions Recorded Confirmed Last Taken Flintstones Complete (iron) 2 tab PO DAILY 03/25/18 03/25/18 03/24/18 Active Medications Generic Name Dose Route Start Last Admin Trade Name Freq PRN Reason Stop Dose Admin Lactated Ringer's 1,000 mls @ 999 mls/hr 03/25/18 09:02 03/25/18 15:30 Lr IV 04/24/18 09:01 999 mls/hr .Q1H1M PRN Administration (Pre-Anesthesia) Past Medical History Medical History Scoliosis Past Surgical History Surgical History S/P colonoscopy S/P dilatation and curettage Past Anesthesia History No Hx of Anesthesia Complications and No Family Hx of Anesthesia Complications History of PONV No Motion Sickness Screening History of Motion Sickness: No Social History Smoking Status: Former smoker tobacco type: cigarettes Smoking End Date: 07/2017 Hx Alcohol Use: No Hx Substance Use: No substance use type: does not use Exercise / Class Metabolic Activity II 4-5 Yardwork/Stairs/Walk up hill Physical Exam Vital Signs Last Vital Signs Temp 98.1 F 03/25/18 14:15 Pulse 101 H 03/25/18 16:15 Resp 20 03/25/18 14:15 BP 124/82 03/25/18 15:55 Pulse Ox 99 03/25/18 16:15 ENMT Mouth: no dentition abnormality Thyromental Distance: > or= 3.5 Finger Breadths Mallampati Class: II Neck normal visual inspection Respiratory normal respiratory effort Auscultation: lungs clear to auscultation bilaterally Cardiovascular Rate/Rhythm: regular rate and regular rhythm Testing Laboratory Results 03/25/18 09:08
[2018-03-25] MEDS ORDERED: ePHEDrine sulfate 50 MG/ML AMP IV PRN (16:43)
[2018-03-25] MEDS ORDERED: NALOXONE HCL 1 MG in SODIUM CHLORIDE 0.9% 1000ML 1,000 ML IV PRN (16:43)
[2018-03-25] MEDS ORDERED: NALOXONE HCL 0.4 MG/1 ML VIAL/CARP IV PRN (16:43)
[2018-03-25] MEDS ORDERED: NALBUPHINE HCL INJ 10 MG/ML AMP IV PRN (16:43)
[2018-03-25] MEDS ORDERED: fentaNYL 2MCG/ML ROPIV 1.25MG/ML 100 ML BAG EPI PRN (16:43)
[2018-03-25] MEDS ORDERED: DiphenhydrAMINE HCL 50 MG/ML VIAL IV PRN (16:43)
[2018-03-25] MEDS ORDERED: ONDANSETRON INJ 2 MG/ML 2 ML VIAL IV PRN (16:43)
[2018-03-25] MEDS ORDERED: METHYLERGONOVINE MALEATE 0.2 MG/ML AMP ONE (19:59)
[2018-03-25] MEDS ORDERED: miSOPROStol 200 MCG TAB ONE (20:02)
[2018-03-25] MEDS ORDERED: ACETAMINOPHEN 325 MG TAB PO PRN (20:10)
[2018-03-25] MEDS ORDERED: SUPERCREAM 0.870% 15 GM JAR EXT PRN (20:10)
[2018-03-25] MEDS ORDERED: BISACODYL 10 MG SUPP PR PRN (20:10)
[2018-03-25] MEDS ORDERED: miSOPROStol 200 MCG TAB PR ONE (20:10)
[2018-03-25] MEDS ORDERED: DIPHTHERIA/TETANUS/PERTUSSIS 0.5 ML SYR/VIAL IM ONE (20:10)
[2018-03-25] MEDS ORDERED: HYDROCORTISONE ACETATE 25 MG SUPP PR PRN (20:10)
[2018-03-25] MEDS ORDERED: BENZOCAINE 20% AER SPR 82.5 GM CAN EXT PRN (20:10)
[2018-03-25] MEDS ORDERED: OXYTOCIN 20 UNITS in LACTATED RINGER'S 1,000 ML IV SCH (20:45)
[2018-03-25] MEDS: IBUPROFEN 600 MG TAB PO PRN (21:38)
--- NOTE | 2018-03-25 22:09 | Anesthesia Procedure Note ---
Date of Service March 25, 2018 Anesthesia Post Epidural Note Vital Signs Vital Signs: Temp Pulse Resp BP Pulse Ox 03/25/18 21:05 97 H 127/73 03/25/18 20:50 54 L 18 121/89 03/25/18 20:35 99 H 112/64 03/25/18 20:22 94 H 18 119/59 L 03/25/18 20:05 95 H 18 111/59 L 03/25/18 19:59 101 H 102/58 L 03/25/18 19:50 105 H 120/60 03/25/18 19:45 107 H 98 03/25/18 19:40 121 H 98 03/25/18 19:35 128 H 132/69 100 03/25/18 19:30 124 H 100 03/25/18 19:25 107 H 100 03/25/18 19:22 122 H 90 03/25/18 19:21 112 H 123/74 03/25/18 19:20 116 H 100 03/25/18 19:15 98.8 F 118 H 18 100 03/25/18 19:10 112 H 100 03/25/18 19:05 100 H 114/60 100 03/25/18 19:00 97 H 100 03/25/18 18:55 108 H 100 03/25/18 18:50 104 H 118/58 L 100 03/25/18 18:45 109 H 100 03/25/18 18:40 100 H 100 03/25/18 18:35 101 H 114/64 100 03/25/18 18:30 101 H 100 03/25/18 18:25 107 H 20 100 03/25/18 18:22 111 H 117/65 03/25/18 18:20 107 H 100 03/25/18 18:15 114 H 100 03/25/18 18:10 115 H 100 03/25/18 18:06 112 H 115/62 03/25/18 18:05 112 H 100 03/25/18 18:00 114 H 100 03/25/18 17:55 98.4 F 106 H 20 100 03/25/18 17:51 102 H 115/65 03/25/18 17:50 103 H 100 03/25/18 17:45 123 H 100 03/25/18 17:40 110 H 100 03/25/18 17:36 109 H 126/68 03/25/18 17:35 105 H 100 03/25/18 17:30 114 H 100 03/25/18 17:25 102 H 20 100 03/25/18 17:20 104 H 100 03/25/18 17:18 101 H 121/62 03/25/18 17:16 102 H 120/61 03/25/18 17:15 98 H 100 03/25/18 17:14 111 H 20 116/62 03/25/18 17:12 100 H 112/55 L 03/25/18 17:10 102 H 134/79 100 03/25/18 17:08 106 H 112/55 L 03/25/18 17:06 107 H 128/64 03/25/18 17:05 106 H 100 03/25/18 17:04 110 H 127/64 03/25/18 17:02 110 H 134/68 03/25/18 17:00 101 H 20 137/74 100 03/25/18 16:58 104 H 109/54 L 03/25/18 16:56 106 H 128/71 03/25/18 16:55 105 H 100 03/25/18 16:54 109 H 116/59 L 03/25/18 16:52 118 H 132/67 03/25/18 16:50 108 H 136/72 100 03/25/18 16:48 116 H 120/57 L 03/25/18 16:47 124 H 90 03/25/18 16:46 114 H 119/56 L 03/25/18 16:45 110 H 20 99 03/25/18 16:44 125 H 131/63 03/25/18 16:42 115 H 126/66 03/25/18 16:40 116 H 124/64 99 03/25/18 16:38 111 H 135/63 03/25/18 16:36 108 H 125/76 03/25/18 16:35 116 H 100 03/25/18 16:34 115 H 20 127/74 03/25/18 16:30 112 H 100 03/25/18 16:25 114 H 100 03/25/18 16:20 112 H 100 03/25/18 16:15 101 H 99 03/25/18 16:10 99 H 100 03/25/18 16:05 101 H 100 01/31/19 16:00 102 H 100 03/25/18 15:55 98.2 F 97 H 20 124/82 100 03/25/18 14:15 98.1 F 90 20 121/70 03/25/18 11:51 97.7 F 83 20 115/65 03/25/18 07:58 98.2 F 20 03/25/18 07:40 98.2 F 93 H 20 119/73 Pain Intensity Abdomen: Pain Intensity: 2 Notes Mental Status: alert / awake / arousable and participated in evaluation Patient Amnestic to Procedure: No Nausea / Vomiting: adequately controlled Pain: adequately controlled Airway Patency, RR, SpO2: stable & adequate BP & HR: stable & adequate Hydration State: stable & adequate Neuraxial Anesthesia: was administered and sensory block is resolving Anesthetic Complications: no major complications apparent and Pt Satisfied with anesthetic care Epidural: Removed without complications and With tip intact
[2018-03-26] MEDS: IBUPROFEN 600 MG TAB PO PRN ×4 (01:53→19:47)
[2018-03-26 07:08] LABS: Hematocrit (blood only) 33.9 % (37-47); Hemoglobin 11.4 g/dL (12.0-16.0); Mean Corpuscular Hgb Conc 33.6 g/dL (32-36); Mean Corpuscular Volume 82.5 fL (80-100); Platelet Count 262 K/uL (130-400); RDW Coefficient of Variation 14.7 % (11.5-14.5); Red Blood Count 4.11 M/uL (4.2-5.4); White Blood Count 14.62 K/uL (4.8-10.8)
--- NOTE | 2018-03-26 07:55 | Operative Report ---
DATE OF OPERATION: 03/25/2018 DELIVERY NOTE The patient delivered a live male in left occiput anterior presentation. There was body cord, no nuchal cord. was delivered, placed on mother's abdomen. Cord was clamped after 1 minute. Apgars 9 and 9. Cord blood was obtained. Placenta was manually removed. Inspection of the perineum showed a right labia minora tear. There were no other lacerations in the vagina. Estimated blood loss is 600 mL. There is good hemostasis. Baby and mother are doing well in recovery. Baby's weight is pending. All instruments were removed from the vagina and accounted for x2 including sponges, needles and retractors. I attest to the content of the Intraoperative Record and any orders documented therein. Any exception s are noted below.
[2018-03-26] MEDS: PRENATAL VITAMIN 1 TAB PO SCH (08:24)
[2018-03-26] MEDS: CITALOPRAM 20 MG TAB PO SCH (08:24)
[2018-03-26] MEDS: DOCUSATE SODIUM 100 MG CAP PO SCH ×2 (08:26→19:47)
[2018-03-26] MEDS ORDERED: FERROUS SULFATE 325 MG TAB PO SCH (09:00)
--- NOTE | 2018-03-26 09:42 | Obstetrical Progress Note ---
Date of Service March 26, 2018 Subjective doing well OOB and ambulating well Physical Exam 2 Vital Signs (Past 24 Hours): Last Vital Signs Temp 36.8 C 03/26/18 08:00 Pulse 80 03/26/18 08:00 Resp 18 03/26/18 08:00 BP 106/67 03/26/18 08:00 Pulse Ox 97 03/26/18 08:00 Constitutional: WD/WN, vitals as above comfortable Abdomen soft non-tender no edema neg Yelena's PPD#1 tent d/c in AM
[2018-03-26] MEDS ORDERED: BISACODYL 5 MG TABEC PO SCH (20:00)
[2018-03-27] MEDS: IBUPROFEN 600 MG TAB PO PRN ×2 (07:36→13:45)
[2018-03-27 07:42] LABS: Hematocrit (blood only) 33.4 % (37-47)
[2018-03-27] MEDS: DOCUSATE SODIUM 100 MG CAP PO SCH (08:59)
[2018-03-27] MEDS: PRENATAL VITAMIN 1 TAB PO SCH (09:00)
[2018-03-27] MEDS: CITALOPRAM 20 MG TAB PO SCH (09:00)
--- NOTE | 2018-03-27 09:23 | Obstetrical Progress Note ---
Date of Service March 27, 2018 Subjective Patient is seen and examined. She feels well, no complaints. Ambulating without dizziness Voiding without difficulty Tolerating regular diet with out N&V Bleeding is minimal No fever/ chills/ CP/ SOB/ N&V/ Leg pain Breast feeding without problems Vital Signs Temp Pulse Resp BP Pulse Ox 03/27/18 07:30 36.6 C 74 20 102/64 03/26/18 23:50 36.6 C 80 18 102/64 03/26/18 20:50 36.9 C 72 20 100/63 03/26/18 12:13 37.0 C 86 16 100/64 98 Lab Results 03/25/18 03/26/18 03/27/18 Range/Units 09:08 06:51 06:55 WBC 10.02 14.62 H (4.8-10.8) K/uL RBC 4.21 4.11 L (4.2-5.4) M/uL Hgb 11.5 L 11.4 L 11.0 L (12.0-16.0) g/dL Hct 34.8 L 33.9 L 33.4 L (37-47) % MCV 82.7 82.5 (80-100) fL MCH 27.3 27.7 (25-34) pg MCHC 33.0 33.6 (32-36) g/dL RDW Std Deviation 44.9 44.0 (36.4-46.3) fL RDW Coeff of Gonzalo 14.8 H 14.7 H (11.5-14.5) % Plt Count 288 262 (130-400) K/uL MPV 8.9 9.0 (7.4-10.4) fL PE: General: Alert, orientedx3, NAD Abd: soft, NT, fundus firm, below Umbilicus Perineum intact, Lochia rubra minimal Ext; NT, no edema AP: 22 yo s/p , ppd# 2 VSS Afebrile doing well Continue routine care All questions were answered Instructions were given when to call D/C home , f/u in office Physical Exam 2 Vital Signs (Past 24 Hours): Last Vital Signs Temp 36.6 C 03/27/18 07:30 Pulse 74 03/27/18 07:30 Resp 20 03/27/18 07:30 BP 102/64 03/27/18 07:30 Pulse Ox 98 03/26/18 12:13
== END 2018-03-27 13:59 | disposition home or self-care (01) | DRG 807 ==
LOC: 4S1 07:30 → 4S2 22:41